=== PATIENT | male | born 1965 | race Caucasian/White ===

== ENCOUNTER 2022-06-30 12:50 | Outpatient (REF) | payer BC, SELFPAY ==
[2022-06-30 13:03] LABS: MANUAL DIFF FLAG NO
[2022-06-30 13:14] LABS: Basophils Absolute Auto 0.1 X10*3/uL (0.0-0.2); Basophils Percent Auto 0.9 % (0-2); Eosinophils Percent Auto 0.7 % (0-4); Hematocrit 43.5 % (42.0-52.0); Hemoglobin 15.4 g/dl (14.0-18.0); Imm Gran Abs Auto 0.02 X10*3/uL (0.00-0.03); Imm Gran Pct Auto 0.4 % (0.0-0.4); Lymphocytes Absolute Auto 1.8 X10*3/uL (1.2-4.9); Lymphocytes Percent Auto 32.5 % (20-40); Mean Corpuscular HGB Conc 35.4 g/dl (31.0-36.0); Mean Corpuscular Hemoglobin 32.8 pg (27.0-33.0); Mean Corpuscular Volume 92.8 fL (80.0-98.0); Mean Platelet Volume 8.9 fL (9.4-12.4); Monocytes Absolute Auto 0.7 X10*3/uL (0.1-1.2); Monocytes Percent Auto 12.5 % (2-11); Neutrophils Absolute Auto 2.9 x10*3/uL (2.0-8.3); Platelet Count 315 X10*3/uL (160-400); Red Blood Count 4.69 X10*6/uL (4.60-5.80); Red Cell Distribution Width 11.9 % (11.0-16.0); White Blood Count 5.5 X10*3/uL (4.8-10.8)
[2022-06-30 13:43] LABS: Alanine Aminotransferase 20 U/L (0-40); Anion Gap 17 (12-20); Aspartate Amino Transferase 20 U/L (5-37); Blood Urea Nitrogen 9 mg/dL (9-16); Carbon Dioxide 22 mmol/L (22-29); Chloride 104 mmol/L (96-108); Estimated Glomerular Filt Rate > 60; Potassium 4.1 mmol/L (3.3-5.1); Sodium 139 mmol/L (135-145)
[2022-06-30 14:06] LABS: Thyroid Stimulating Hormone 1.24 uIU/mL (0.32-4.0)
== END 2022-06-30 12:51 | disposition home or self-care (01) ==
LOC: HO.LAB 12:50
PROVIDERS: PCP Family Medicine; Visit Provider Family Medicine
DX: I10 Essential (primary) hypertension (principal); R00.0 Tachycardia, unspecified; K75.81 Nonalcoholic steatohepatitis (NASH)
CPT/HCPCS: 36415; 80051; 82565; 84443; 84450; 84460; 84520; 85025

== ENCOUNTER 2024-06-22 11:47 | Outpatient (AMB) | payer BC, SELFPAY ==
--- NOTE | 2024-06-22 11:51 | MHC.OFFVIS ---
Vital Signs 06/22/24 11:53 Height 5 ft 10 in Weight 177 lb 4.026 oz BMI 25.4 BP 142/88 H Blood Pressure Location Lt brachial Position Sitting Pulse 81 Intake Visit Reasons: Colonoscopy Screening Intake Note: Patient in office today for colonoscopy screening. CC: Patient reports hx of hemorrhoids for about 15 years. Denies Allergies No Known Allergies [No Known Allergies*] Allergy (Verified 06/22/24 11:55) HPI HPI Colonoscopy Screening: Details: 59-year-old male here for preprocedural meeting to discuss a screening colonoscopy. He is referred by Nakul Chávez MD. P.m. X Allergic rhinitis Acne Hemorrhoids GERD High cholesterol Depression * SURGICAL HISTORY Collarbone fx repair * ALLERGIES:NKDA * [employer] LABS: none since 2021 TODAY'S VISIT This is his first colonoscopy. He has a known hemorrhoid that comes out intermittently and some RB on the TT for 20 years. No upper GI problems. He is fairly naive to anesthesia and sedation. He denies any cardiac or respiratory problems. No ID problems. There is no known FHX of CRC or polyps. [facility] Surgical History (Reviewed 06/22/24 @ 11:59 by Alessandro Keenan [facility]) No pertinent past surgical history Social History Alcohol intake: former Patient Tobacco Use Status: Never used Tobacco Review of Systems Const Denies fatigue, Denies fever(s), Denies night sweats, Denies poor appetite and Denies weight loss Eyes Reports requires corrective lenses ENT Reports Normal hearing present, Denies dental pain, Denies dysphagia, Denies hearing loss, Denies mouth pain, Denies odynophagia, Denies throat swelling, Denies tongue swelling and Reports other (Dentition adequate) GI Details: Denies abdominal pain, Denies melena, Denies bloating, Denies hematochezia, Denies constipation, Denies GI cramping, Denies dysphagia, Denies excessive flatus, Denies early satiety, Denies heartburn, Denies diarrhea, Denies nausea, Denies odynophagia, Denies vomiting and Denies hematemesis Skin/Breast Denies pruritus, Denies lesions, Denies rash and Denies jaundice Neuro Reports Normal hearing present and Denies Abnormal speech present Endo Denies fatigue Aller/Immun Denies throat swelling and Denies tongue swelling Physical Exam Vital Signs: BMI result Body Mass Index 25.4 Const General: cooperative, no acute distress, well developed and well groomed Nutritional Appearance: well nourished, obese and overweight Orientation/consciousness: oriented to person, oriented to place and oriented to time Limitations: No language barrier, ambulation with cane, ambulation with walker and wheelchair HEENT Head: Yes normocephalic and Yes atraumatic Eyes General: appearance normal, both eyes and all related structures Pupils: Equal, round and reactive pupils present Neck Neck: Yes normal visual inspection and Yes no lymphadenopathy Thyroid: Thyroid normal Resp Effort & Inspection: normal respiratory effort and able to speak in complete sentences Auscultation: clear to auscultation bilaterally Cardio Rate: regular rate Rhythm: regular rhythm Heart sounds: Normal, physiologic split S2 sound present Peripheral pulses: radial pulses present and posterior tibial pulses present GI Inspection: No distended, No Abdominal panniculus present and Yes visible herniation (mild umbilical) Palpation (GI): Soft to palpation, nontender, no guarding, not rigid and No hepatosplenomegaly present Percussion: Yes normal to percussion Auscultation: normal bowel sounds Rectal Exam - Male: Yes deferred Skin General skin exam: no rashes or lesions noted, turgor normal, skin not dry, no jaundice, No spider nevi and no striae Rashes: no rashes Nails: normal Neuro General: oriented to person, oriented to place and oriented to time Cranial nerves: Yes Equal, round and reactive pupils present and Yes Normal hearing present Speech: No Abnormal speech present Extrem General: Yes normal to inspection, No clubbing, No cyanosis and No edema Psych Appearance: grossly normal and well kempt Mental Status: mental status grossly normal Speech and movement: Normal speech and movement present Affect: normal affect Attitude: cooperative Thought process: Normal thought process present and not confabulating Thought content: Normal thought content present Insight: Good insight present (Psych) Judgement: Good judgement present (Psych) Assessment & Plan Assessment & Plan (1) Pre-op examination: Code(s): Z01.818 - Encounter for other preprocedural examination Category: Medical Plan This is his first colonoscopy. He has a known hemorrhoid that comes out intermittently and some RB on the TT for 20 years. No upper GI problems. He is fairly naive to anesthesia and sedation. He denies any cardiac or respiratory problems. No ID problems. There is no known FHX of CRC or polyps. Orders: Orders Comprehensive Met. Panel Today Z01.818 - Encounter for other preprocedural examination Colonoscopy - GI Use Only Today Z01.818 - Encounter for other preprocedural examination Complete Blood Count Auto Diff Today Z01.818 - Encounter for other preprocedural examination Medications: New bisacodyl (Dulcolax (bisacodyl)) 10 mg (2 x 5 mg) PO BEDTIME 2 days 4 tabs 0RF polyethylene glycol 3350 (Miralax) 238 grams PO ONCE 1 day 238 grams 0RF colonoscopy prep Coding Level of Care Code New Pt Level 3 (47190) Diagnoses Pre-op examination Z01.818
[2024-06-22 11:53] VITALS: BP 142/88; PULSE 81; BMI 25.4
== END 2024-06-22 12:19 | disposition home or self-care (01) ==
LOC: HO.HGI 11:48
PROVIDERS: PCP Family Medicine; Visit Provider Nurse Practitioner
DX: Z01.818 Encounter for other preprocedural examination (principal); Z12.11 Encounter for screening for malignant neoplasm of colon
CPT/HCPCS: S0285

== ENCOUNTER → 2024-06-22 11:47 | Outpatient (BNVA) | payer BC, SELFPAY | PROVIDERS: PCP Family Medicine; Visit Provider Nurse Practitioner ==

== ENCOUNTER 2024-11-02 06:24 | Day surgery (SDC) | payer BC, SELFPAY ==
[2024-10-31 14:10] VITALS: BMI 25.4
--- NOTE | 2024-11-01 09:10 | P.CONAN_ITS ---
Documented by User: Harriet Victoria NP 11/01/24 09:10 HPI - Anesthesia Eval Consult details Narrative: 59yo M for Colonoscopy [facility] Active Problems Active Problems: All Active Problems Pre-op examination (Acute) Depression (Acute) GERD (gastroesophageal reflux disease) (Acute) High cholesterol (Acute) Hemorrhoids (Acute) Allergic rhinitis (Acute) Acne (Acute) Surgical History Surgical History No pertinent past surgical history Social History Social History Are you a primary ocular care technician to a significant other at home: No Do you presently have visiting nurse or other home services: No Alcohol intake: former Patient Tobacco Use Status: Never used Tobacco Use of substances other than those prescribed or required for medical reasons: Yes Have you been hit, kicked, punched, or otherwise hurt by someone within the past year? If so, by whom?: No Are you DNR?: No Advance Directives: No Advance Directives Information Provided: Yes Recently lost weight without trying: No Meds Allergies Allergy/AdvReac Type Severity Reaction Status Date / Time No Known Allergies Allergy Verified 06/22/24 11:55 [No Known Allergies*] Home Medications ?Medication ?Instructions ?Recorded ?Confirmed ?Last Taken ?Type bupropion HCl 150 mg tablet,12 hr 150 mg PO DAILY 06/22/24 Unknown History sustained-release Exam Height,Weight and Vital Signs: Height 5 ft 10 in Weight 80.286 kg Assessment and Plan Assessment Anesthesia Assessment: Chart Reviewed Documented by User: Chioma Ochoa MD 11/02/24 08:12 [facility] Family History Family history of problems with anesthesia: No Surgical History Surgical History No pertinent past surgical history History of Problems with Anesthesia: No Social History Social History (Reviewed 06/22/24 @ 11:59 by Alessandro Keenan [facility]) Are you a primary ocular care technician to a significant other at home: No Do you presently have visiting nurse or other home services: No Alcohol intake: former Patient Tobacco Use Status: Never used Tobacco Use of substances other than those prescribed or required for medical reasons: Yes Have you been hit, kicked, punched, or otherwise hurt by someone within the past year? If so, by whom?: No Are you DNR?: No Advance Directives: No Advance Directives Information Provided: Yes Recently lost weight without trying: No Meds Allergies Allergy/AdvReac Type Severity Reaction Status Date / Time No Known Allergies Allergy Verified 06/22/24 11:55 [No Known Allergies*] Home Medications ?Medication ?Instructions ?Recorded ?Confirmed ?Last Taken ?Type bupropion HCl 150 mg tablet,12 hr 150 mg PO DAILY 06/22/24 Unknown History sustained-release Exam Airway Mallampati Class: II (cracked lateral molar, not loose) TM Dist: >3cm Neck ROM: Full Heart: rrr Lungs: cta Assessment and Plan Assessment Anesthesia Assessment: Anesthesia Plan Discussed Final Anesthetic Review Family History of Problems with Anesthesia: No History of Problems with Anesthesia: No NPO: Yes ASA Class: II Final Preanesthetic Review: No Changes in Pt Med Stat, Meds/Allgs Chart Reviewed and Consent Obtained/Reviewed Patient Risk: Low Procedure Risk: Low Anesthetic Plan Anesthetic Plan: MAC: Disposition: Standard PACU
[2024-11-02 07:24] VITALS: BP 115/75; PULSE 81; RESP 16; TEMP 36.7; O2SAT 97
[2024-11-02] MEDS: Lactated Ringers 1,000 ML 100 ML IVCONT (07:38)
--- NOTE | 2024-11-02 08:28 | MHC.SHP ---
Pre-Procedural Eval Section A - 24 Hr Update-Section A only Date of Service: 11/02/24 Section B - Complete if H&P > 30 days Chief Complaint: Encounter for screening for malignant neoplasm of Relevant Family History (Specify if Yes): No Relevant Social History: None Present Medications: see Short Stay Collaborative assessment Medical History: Significant History (depression, gerd, acne) History of Previous Operations: No relevant previous surgery Allergies: Allergies Allergy/AdvReac Type Severity Reaction Status Date / Time No Known Allergies Allergy Verified 06/22/24 11:55 [No Known Allergies*] Review of Systems Sugical H&P ROS: Negative: Constitution, Cardiovascular, Respiratory, Neurological, Psychiatric, Hem-Onc, Allergic/Immunologic, Gastrointestinal, Genitourinary, Musculoskeletal, Integumentary, Endocrine and Eyes/Ears/Nose/Throat Exam Surgical H&P Exam: Normal: HEENT, Normal: Heart, Normal: Lungs, Normal: Extremities, Normal: Abdomen, Normal: Skin and Normal: Neurological Plan Diagnosis/Plan: Unchanged I have reviewed the history and physical and performed a pertinent physical examination on my patient. No changes have occurred unless specified. Time Spent With Patient Time: Total time managing care of this patient today ____ minutes.
--- NOTE | 2024-11-02 08:57 | P.OPN-COLO_ITS ---
Colonoscopy Operative Note Operative Note Date of Service: 11/02/24 Narrative: Operative Information Procedure Description: Colonoscopy Indication: screening Anesthesia: MAC COLONOSCOPY Instrument: Olympus variable stiffness pediatric scope 190L Colonoscopy Monitoring: Vital signs and clinical assessment, continuous EKG monitoring, Pulse oximetry, Carbon Dioxide monitoring and blood pressure monitoring were done throughout the procedure. Colon withdrawal time was 20 minutes. Procedure: The patient was placed in the left lateral decubitis position and pre-procedure medications were administered. After a digital rectal examination of the ano-rectum, the video colonoscope was inserted into the rectum and advanced through the colon to the cecum/TI. The colonoscope was slowly withdrawn in a retrograde panoramic fashion and the colon mucosa was carefully examined including a retroflexed view of the rectum. Findings and interventions are described below. Procedure Difficulty: easy Findings: Terminal Ileum-normal Cecum:normal Ascending Colon: 12-16 mm sessile polyp noted in proximal area, lifted wtih few ml of eleview and removed with cold snare with x 3 clips applied to close defect Transverse Colon -normal Descending Colon: 10-11 mm sessile polyp removed with cold snare Sigmoid Colon: normal Rectum: Retroflexion with large internal hemorrhoids seen, grade I Anorectum - normal Intervention: cold snare, eleview injection for EMR Colon preparation: [place] Bowel Preparation Scale Right colon; 2 Transverse colon: 2 Left colon; 2 (0 = Unprepared colon segment with mucosa not seen due to solid stool that cannot be cleared. 1 = Portion of mucosa of the colon segment seen, but other areas of the colon segment not well seen due to staining, residual stool and/or opaque liquid. 2 = Minor amount of residual staining, small fragments of stool and/or opaque liquid, but mucosa of colon segment seen well. 3 = Entire mucosa of colon segment seen well with no residual staining, small fragments of stool or opaque liquid) Impression and Post Procedure Diagnosis: colon polyps x 2 internal hemorrhoids Plan: High fiber diet leaflet Avoid straining at stool, epsom salts and sitz bath, anusol supps or cream Repeat Colonoscopy in 1 year due to large polyps or earlier if clinically indicated Above findings were reviewed with the patient and relevant handouts were provided if indicated.
[2024-11-02 09:07] VITALS: BP 129/75; PULSE 73; RESP 16; TEMP 36.3; O2SAT 98
[2024-11-02 09:21] VITALS: BP 130/72; PULSE 64; RESP 16; TEMP 36.8; O2SAT 99
== END 2024-11-02 10:13 | disposition home or self-care (01) ==
PROVIDERS: Visit Provider Internal Medicine Gastroenterology
PROC: 0DJD8ZZ Inspection of Lower Intestinal Tract, Via Natural or Artificial Opening Endoscopic (ICD-10-PCS; CPT 45378; principal; 2024-11-02 08:30)
DX: Z12.11 Encounter for screening for malignant neoplasm of colon (principal); D12.2 Benign neoplasm of ascending colon; D12.4 Benign neoplasm of descending colon; K64.0 First degree hemorrhoids; E78.00 Pure hypercholesterolemia, unspecified; K21.9 Gastro-esophageal reflux disease without esophagitis; F32.A Depression, unspecified
CPT/HCPCS: 45385; 45381; 88305; J2003; J2704

== ENCOUNTER → 2024-11-02 06:24 | Outpatient (BNV) | payer BC, SELFPAY | PROVIDERS: Visit Provider Internal Medicine Gastroenterology | DX: Z12.11 Encounter for screening for malignant neoplasm of colon (principal); D12.2 Benign neoplasm of ascending colon; D12.4 Benign neoplasm of descending colon; K64.0 First degree hemorrhoids | CPT/HCPCS: 45381; 45385 ==

== ENCOUNTER 2024-11-16 16:25 | Outpatient (AMB) | payer BC, SELFPAY ==
--- NOTE | 2024-11-16 16:28 | MHC.OFFVIS ---
Vital Signs 11/16/24 16:44 Height 5 ft 10 in Weight 167 lb 15.876 oz BMI 24.1 BP 147/87 H Blood Pressure Location Lt brachial Position Sitting Intake Visit Reasons: s/p colo Herrera Intake Note: Patient in office today in follow up s/p colonoscopy. CC: Denies having any GI symptoms or concerns. Combat Engineer Required: No Accompanied by: Self / Same As Patient Allergies No Known Allergies [No Known Allergies*] Allergy (Verified 11/16/24 16:50) HPI HPI s/p colo Herrera: Details: Assessment & Plan (1) Pre-op examination: Code(s): Z01.818 - Encounter for other preprocedural examination Category: Medical Plan This is his first colonoscopy. He has a known hemorrhoid that comes out intermittently and some RB on the TT for 20 years. No upper GI problems. He is fairly naive to anesthesia and sedation. He denies any cardiac or respiratory problems. No ID problems. There is no known FHX of CRC or polyps. Orders: Orders Comprehensive Met. Panel Today Z01.818 - Encounter for other preprocedural examination Colonoscopy - GI Use Only Today Z01.818 - Encounter for other preprocedural examination Complete Blood Count Auto Diff Today Z01.818 - Encounter for other preprocedural examination Medications: New bisacodyl (Dulcolax (bisacodyl)) 10 mg (2 x 5 mg) PO BEDTIME 2 days 4 tabs 0RF polyethylene glycol 3350 (Miralax) 238 grams PO ONCE 1 day 238 grams 0RF colonoscopy prep LABS: not obtained COLONOSCOPY 11/02/24 Findings: Terminal Ileum-normal Cecum:normal Ascending Colon: 12-16 mm sessile polyp noted in proximal area, lifted wtih few ml of eleview and removed with cold snare with x 3 clips applied to close defect Transverse Colon -normal Descending Colon: 10-11 mm sessile polyp removed with cold snare Sigmoid Colon: normal Rectum: Retroflexion with large internal hemorrhoids seen, grade I Anorectum - normal Intervention: cold snare, eleview injection for EMR Impression and Post Procedure Diagnosis: colon polyps x 2 internal hemorrhoids Plan: High fiber diet leaflet Avoid straining at stool, epsom salts and sitz bath, anusol supps or cream Repeat Colonoscopy in 1 year due to large polyps or earlier if clinically indicated BIOPSY Received: 11/02/24 Diagnosis A. Colon, ascending, polyp: Tubular adenoma; negative for high-grade dysplasia and carcinoma. B. Colon, descending, polyp: Tubular adenoma; negative for high-grade dysplasia and carcinoma TODAY'S VISIT THE PROCEDURE NEEDS TO BE REPEATED IN 1 YEAR TO THE LARGE size of the tubular adenomas. The procedure was well tolerated. The results were explained and the patient is agreeable to the follow-up interval as stated. The bowel pattern has returned to normal. Education was provided to tell any 1st degree relatives about their findings to be sure that they are screened by age 45. Educated that they will be put on a recall list when it is time for their repeat scope but should they move out of state or away from the hospital they will need to remember along with their primary to repeat the procedure in a timely fashion to avoid any adverse complications. [facility] Surgical History No pertinent past surgical history Social History Are you a primary critical care nurse practitioner to a significant other at home: No Do you presently have visiting nurse or other home services: No Alcohol intake: former Patient Tobacco Use Status: Never used Tobacco Review of Systems Const Denies fatigue, Denies fever(s), Denies night sweats, Denies poor appetite and Denies weight loss ENT Reports Normal hearing present, Denies dental pain, Denies dysphagia, Denies hearing loss, Denies mouth pain, Denies odynophagia, Denies throat swelling, Denies tongue swelling and Reports other (Dentition adequate) Card Reports no additional complaints Resp Reports no additional complaints GI Details: Denies abdominal pain, Denies melena, Denies bloating, Denies hematochezia, Denies constipation, Denies GI cramping, Denies dysphagia, Denies excessive flatus, Denies early satiety, Denies heartburn, Denies diarrhea, Denies nausea, Denies odynophagia, Denies vomiting and Denies hematemesis Skin/Breast Denies pruritus, Denies lesions, Denies rash and Denies jaundice Neuro Reports Normal hearing present and Denies Abnormal speech present Endo Denies fatigue Aller/Immun Denies throat swelling and Denies tongue swelling Physical Exam Const General: cooperative, no acute distress, well developed and well groomed Nutritional Appearance: average body habitus and well nourished Orientation/consciousness: oriented to person, oriented to place and oriented to time Limitations: No language barrier HEENT Head: Yes normocephalic and Yes atraumatic Eyes General: appearance normal, both eyes and all related structures Pupils: Equal, round and reactive pupils present Neck Neck: Yes normal visual inspection and Yes no lymphadenopathy Thyroid: Thyroid normal Resp Effort & Inspection: normal respiratory effort and able to speak in complete sentences Auscultation: clear to auscultation bilaterally Cardio Rate: regular rate Rhythm: regular rhythm Heart sounds: Normal, physiologic split S2 sound present Peripheral pulses: radial pulses present and posterior tibial pulses present GI Inspection: No distended and No Abdominal panniculus present Palpation (GI): Soft to palpation, nontender, no guarding, not rigid and No hepatosplenomegaly present Percussion: Yes normal to percussion Auscultation: normal bowel sounds Rectal Exam - Male: Yes deferred Skin General skin exam: no rashes or lesions noted, turgor normal, skin not dry, no jaundice, No spider nevi and no striae Rashes: no rashes Nails: normal Neuro General: oriented to person, oriented to place and oriented to time Cranial nerves: Yes Equal, round and reactive pupils present and Yes Normal hearing present Speech: No Abnormal speech present Extrem General: Yes normal to inspection, No clubbing, No cyanosis and No edema Psych Appearance: grossly normal and well kempt Mental Status: mental status grossly normal Speech and movement: Normal speech and movement present Affect: normal affect Attitude: cooperative Thought process: Normal thought process present and not confabulating Thought content: Normal thought content present Insight: Good insight present (Psych) Judgement: Good judgement present (Psych) Assessment & Plan Assessment & Plan (1) Tubular adenoma of colon: Comment: 10/2024= 2 LARGE TA IS REPEAT IN 1 YEAR Code(s): D12.6 - Benign neoplasm of colon, unspecified Category: Medical Plan THE PROCEDURE NEEDS TO BE REPEATED IN 1 YEAR TO THE LARGE size of the tubular adenomas. The procedure was well tolerated. The results were explained and the patient is agreeable to the follow-up interval as stated. The bowel pattern has returned to normal. Education was provided to tell any 1st degree relatives about their findings to be sure that they are screened by age 45. Educated that they will be put on a recall list when it is time for their repeat scope but should they move out of state or away from the hospital they will need to remember along with their primary to repeat the procedure in a timely fashion to avoid any adverse complications. Medications: Refilled polyethylene glycol 3350 (Miralax) THE DAY BEFORE your procedure mix entire bottle with 64 ounces of Gatorade- no red, blue or purple. AT 5PM Start drinking 1 cup every 15minutes until half is gone. Continue drinking plenty of clear liquids. AT 10PM Finish drinking remaining prep. 238 grams PO ONCE 1 day 238 grams 0RF bisacodyl (Dulcolax (bisacodyl)) the day before colonoscopy take 2 pills at 12pm and 2 pills at 5pm with plenty of water 20 mg (4 x 5 mg) PO ONCE 1 day 4 tabs 0RF Coding Level of Care Code Est Pt Level 3 (26489) Diagnoses Tubular adenoma of colon D12.6
[2024-11-16 16:44] VITALS: BP 147/87; BMI 24.1
== END 2024-11-16 17:06 | disposition home or self-care (01) ==
LOC: HO.HGI 16:25
PROVIDERS: PCP Family Medicine; Visit Provider Nurse Practitioner
DX: D12.6 Benign neoplasm of colon, unspecified (principal)
CPT/HCPCS: 99213

== ENCOUNTER 2025-02-27 11:26 | Outpatient (AMB) | payer BC, SELFPAY ==
--- NOTE | 2025-02-27 11:28 | MHC.PC.OV ---
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 Accompanied by: Other Relationship Allergies No Known Allergies (No Known Allergies*) Allergy (Verified 02/27/25 11:37) Medication List - Last Reconciled 02/27/25 by KAILYN Gong acetaminophen 650 mg PO Q4H bupropion HCl SR 150 mg PO DAILY docusate sodium 100 mg PO BID folic acid 1 mg PO DAILY gabapentin 600 mg PO TID ibuprofen 400 mg PO TID loratadine (Allergy Relief (loratadine)) 10 mg PO DAILY magnesium hydroxide (Milk of Magnesia) 10 mL PO DAILY pyridoxine (vitamin B6) 50 mg PO DAILY trazodone 100 mg PO BEDTIME HPI HPI Comments History of Present Illness Details 60-year-old male with history of insomnia and alcohol use disorder presents to the office today to establish care, for management of chronic conditions, and for hospital discharge follow-up. Hospitalized from 02/12-02/17 at [facility] due to a fall from a ladder with loss of consciousness. He reports that he was cleaning out his gutter while standing on a ladder when he accidentally fell. On arrival, GCS 15. Ethyl alcohol on arrival was 154. He sustained non displaced fx of R1-4 and R8-10 and displaced fx R5-7 as well as a displaced fx of anterior and medial acetabulum and base of superior pubic rami, 1 cc pneumothorax, and pulmonary contusion/trace effusion. He did undergo ribfixation/VATS without complication. R chest tube as placed and IS was monitored. Chest tube removed 02/16 without issue. He was recommended for PT at home. He was discharged home witih gabapentin, robaxin and oxycodone. He reports he is only using these at bedtime and otherwise reports pain is well managed. He was seen by PT through [facility] who did not feel further home visits were needed and he has been continuing recommended physical therapy exercises and has been taking small steps, but is otherwise using a wheelchair. He reports there is some pain when coughing or sneezing but reports this is rare. No dyspnea. Discharged with [address] He does report that he had been drinking 2 beers on a daily basis but has since discontinued any alcohol consumption. He was monitored for alcohol withdrawal on phenobarbital. Sodium was noted to be low at 129 on discharge. ribs sneeze and cough Insomnia-managed with bupropion Concerns: None except above Health maintenance: Last colonoscopy 10/2024 with multiple large polyps noted, 1 year follow-up advised. Dr. Sharon Lawson for screening PSA ROS: General: No fevers, malaise, unintentional weight loss HEENT: No blurred vision, diplopia. No sore throat, nasal congestion, rhinorrhea, sinus pain, ear pain Cardiovascular: No chest pain, palpitations, or leg edema Respiratory: No shortness of breath, wheezing, cough GI: No abdominal pain, nausea, vomiting, diarrhea, constipation, melena, hematochezia : No dysuria, hematuria, increased urinary frequency, decreased urinary output MSK: see hpi Neuro: No headaches, weakness, paresthesias Skin: No rashes or lesions EXAM: Constitutional - Awake and Alert, No apparent distress Eyes - PERRL Cardiovascular - S1S2, RRR, No edema Respiratory - Normal lung expansion, Normal respiratory effort, No respiratory distress, CTA bilaterally Extremities - no calf tenderness bilaterally, no swelling Skin - Warm/Dry . [address] in post op incision without any dehiscence, purulent drainage, or significant erythema. There was also [address] at site of chest tube Neurological - Alert & oriented x3 Psychological - Appropriate affect [facility] Medical History (Updated 02/27/25 @ 12:35 by KAILYN Gong) History of alcohol abuse Pelvis fracture Traumatic closed fracture of multiple ribs of left side with minimal displacement Surgical History (Updated 02/22/25 @ 16:28 by Angela Edwards) H/O colonoscopy (~11/02/24) Social History Are you a primary acute care nurse practitioner to a significant other at home: No Do you presently have visiting nurse or other home services: No Alcohol intake: former Patient Tobacco Use Status: Never used Tobacco Questionnaire PHQ-9 Over the last 2 weeks, how often have you been bothered by any of the following problems? 1. Little interest or pleasure in doing things: several days 2. Feeling down, depressed, or hopeless: not at all 3. Trouble falling or staying asleep, or sleeping too much: not at all 4. Feeling tired or having little energy: several days 5. Poor appetite or overeating: not at all 6. Feeling bad about yourself - or that you are a failure or have let yourself or your family down: not at all 7. Trouble concentrating on things, such as reading the newspaper or watching television: not at all 8. Moving or speaking so slowly that other people could have noticed. Or the opposite - being so fidgety or restless that you have been moving around a lot more than usual: not at all 9. Thoughts that you would be better off or of hurting yourself in some way: not at all Total score: 2 Source: Developed by Drs. Tylor Greenfield, Carolina Turner, Tucker Flores and colleagues, with an educational willian from [employer]. Thrive Questionnaire Date Thrive assessed: 02/27/25 I am a: Patient What is your living situation today?: I have a steady place to live Within the past 12 months, did the food you bought not last and you didn't have the money to get more?: Never true Within the past 12 months, did you worry whether your food would run out before you got money to buy more?: Never true Do you have trouble paying for medicines?: No Do you have trouble getting transportation to medical appointments?: No Do you have trouble paying your heating and electricity bill?: No Do you have trouble taking care of your child, family member or friend?: No Do you have trouble with day-to-day activities such as bathing, preparing meals, shopping, managing finances, etc.?: No Are you currently unemployed and looking for a job?: No Are you interested in more education?: No THRIVE Score: 0 Physical exam (Primary Care) Vital Signs: Last Vital Signs Temp 97.8 F 02/27/25 11:39 Pulse 81 02/27/25 11:39 Resp 16 02/27/25 11:39 BP 130/62 02/27/25 11:39 Pulse Ox 98 02/27/25 11:39 Oxygen Delivery Method Room Air 02/27/25 11:39 BMI result Body Mass Index 23.0 Tobacco/Smoking Status: Tobacco use Status Patient Tobacco Use Status Never used Tobacco 02/27/25 11:29 PHQ-9: PHQ-9 Score PHQ-9: Total score 2 02/27/25 11:53 Thrive Assessment: Date of Thrive Assessment Date Thrive assessed 02/27/25 02/27/25 11:45 Coding Level of Care Code New Pt Level 4 (90385) Complex EM visit Add On G2211 Diagnoses Hospital discharge follow-up Z09 History of alcohol abuse F10.11 Hyponatremia E87.1 High cholesterol E78.00 Traumatic closed fracture of multiple ribs of left side with minimal displacement S22.42XA Pelvis fracture S32.9XXA Assessment & Plan Assessment & Plan (1) Hospital discharge follow-up: Code(s): Z09 - Encounter for follow-up examination after completed treatment for conditions other than malignant neoplasm Category: Medical Plan: Discharge medications reconciled. Reviewed history and physical and discharge summary as well as CT scan head, neck, ribs, thoracic, lumbar spine and hip/pelvis. Labs also reviewed. Plan as below (2) History of alcohol abuse: Code(s): F10.11 - Alcohol abuse, in remission Category: Medical Plan: Continue with abstinence. No evidence of withdrawal during hospitalization, managed with phenobarbital (3) Hyponatremia: Code(s): E87.1 - Hypo-osmolality and hyponatremia Category: Medical Plan: Possibly beer potomania in setting of above. Recheck sodium levels (4) High cholesterol: Code(s): E78.00 - Pure hypercholesterolemia, unspecified Category: Medical Plan: Lipid panel ordered. ASCVD risk score to be calculated pending results of studies (5) Traumatic closed fracture of multiple ribs of left side with minimal displacement: Code(s): S22.42XA - Multiple fractures of ribs, left side, initial encounter for closed fracture Category: Medical Plan: S/p fixation. Follow-up with Orthopedic surgery tomorrow as scheduled pain management p.r.n. (6) Pelvis fracture: Code(s): S32.9XXA - Fracture of unspecified parts of lumbosacral spine and pelvis, initial encounter for closed fracture Category: Medical Plan: Continue with PT exercises. Pain management p.r.n. gradual increase in ambulation as tolerated Plan Follow-up in the office next month as scheduled. Labs to be completed as ordered Orders: Orders Complete Blood Count Auto Diff Today E78.00 - Pure hypercholesterolemia, unspecified, E87.1 - Hypo-osmolality and hyponatremia, F32.A - Depression, unspecified, S22.42XA - Multiple fractures of ribs, left side, initial encounter for closed fracture, S32.9XXA - Fracture of unspecified parts of lumbosacral spine and pelvis, initial encounter for closed fracture Lipid Panel Today E78.00 - Pure hypercholesterolemia, unspecified, E87.1 - Hypo-osmolality and hyponatremia, F32.A - Depression, unspecified, S22.42XA - Multiple fractures of ribs, left side, initial encounter for closed fracture, S32.9XXA - Fracture of unspecified parts of lumbosacral spine and pelvis, initial encounter for closed fracture Liver Panel Today E78.00 - Pure hypercholesterolemia, unspecified, E87.1 - Hypo-osmolality and hyponatremia, F32.A - Depression, unspecified, S22.42XA - Multiple fractures of ribs, left side, initial encounter for closed fracture, S32.9XXA - Fracture of unspecified parts of lumbosacral spine and pelvis, initial encounter for closed fracture Basic Metabolic Panel Today E78.00 - Pure hypercholesterolemia, unspecified, E87.1 - Hypo-osmolality and hyponatremia, F32.A - Depression, unspecified, S22.42XA - Multiple fractures of ribs, left side, initial encounter for closed fracture, S32.9XXA - Fracture of unspecified parts of lumbosacral spine and pelvis, initial encounter for closed fracture Prostate Specific Antigen Today E78.00 - Pure hypercholesterolemia, unspecified, E87.1 - Hypo-osmolality and hyponatremia, F32.A - Depression, unspecified, S22.42XA - Multiple fractures of ribs, left side, initial encounter for closed fracture, S32.9XXA - Fracture of unspecified parts of lumbosacral spine and pelvis, initial encounter for closed fracture Magnesium Today F10.11 - Alcohol abuse, in remission Patient Instructions: Check if PFML (paid family medical leave) paperwork has been filled out for leave. If not get paperwork from or print off from internet and bring them into the office for completion. Fill out the front pages and add name to the subsequent pages.
[2025-02-27 11:39] VITALS: BP 130/62; PULSE 81; RESP 16; TEMP 36.6; O2SAT 98; BMI 23.0
== END 2025-02-27 13:28 | disposition home or self-care (01) ==
LOC: HO.HMCHD 11:26
PROVIDERS: PCP Family Medicine; Visit Provider Physician Assistant
DX: Z09 Encounter for follow-up examination after completed treatment for conditions other than malignant neoplasm (principal); F10.11 Alcohol abuse, in remission; E87.1 Hypo-osmolality and hyponatremia; E78.00 Pure hypercholesterolemia, unspecified; S22.42XA Multiple fractures of ribs, left side, initial encounter for closed fracture; S32.9XXA Fracture of unspecified parts of lumbosacral spine and pelvis, initial encounter for closed fracture

== ENCOUNTER 2025-04-11 16:39 | Outpatient (AMB) | payer BC, SELFPAY ==
--- NOTE | 2025-04-11 17:06 | MHC.PC.OV ---
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 Accompanied by: Self / Same As Patient Allergies No Known Allergies (No Known Allergies*) Allergy (Verified 04/11/25 17:06) Medication List - Last Reconciled 04/11/25 by KAILYN Gong bupropion HCl SR 150 mg PO DAILY loratadine (Allergy Relief (loratadine)) 10 mg PO DAILY trazodone 100 mg PO BEDTIME Tobacco use date assessed: 04/11/25 Dental Screening Dental Screen Date: 04/11/25 Did you have a dental visit in the last 12 months?: No Did you have a dental problem in the last 6 months where you did not have access to dental care?: No Was dental information given to patient?: No HPI HPI Comments History of Present Illness Details 60-year-old male with history of insomnia and alcohol use disorder presents to the office today to establish care, for follow up Hospitalized from 02/12-02/17 at [facility] due to a fall from a ladder with loss of consciousness. He reports that he was cleaning out his gutter while standing on a ladder when he accidentally fell. On arrival, GCS 15. Ethyl alcohol on arrival was 154. He sustained non displaced fx of R1-4 and R8-10 and displaced fx R5-7 as well as a displaced fx of anterior and medial acetabulum and base of superior pubic rami, 1 cc pneumothorax, and pulmonary contusion/trace effusion. He did undergo ribfixation/VATS without complication. R chest tube as placed and IS was monitored. Chest tube removed 02/16 without issue. He was recommended for PT at home. He was discharged home witih gabapentin, robaxin and oxycodone. He reports he is only using these at bedtime and otherwise reports pain is well managed. He was seen by PT through [facility] who did not feel further home visits were needed and he has been continuing recommended physical therapy exercises and has been taking small steps, but is otherwise using a wheelchair. He reports there is some pain when coughing or sneezing but reports this is rare. No dyspnea. Discharged with [address] Feeling much better, has returned to work Insomnia-managed with bupropion for rumination. Trazodone every 2-3 days as needed Concerns: None except above Health maintenance: Last colonoscopy 10/2024 with multiple large polyps noted, 1 year follow-up advised. Dr. Sharon Lawson for screening PSA ROS: General: No fevers, malaise, unintentional weight loss HEENT: No blurred vision, diplopia. No sore throat, nasal congestion, rhinorrhea, sinus pain, ear pain Cardiovascular: No chest pain, palpitations, or leg edema Respiratory: No shortness of breath, wheezing, cough GI: No abdominal pain, nausea, vomiting, diarrhea, constipation, melena, hematochezia : No dysuria, hematuria, increased urinary frequency, decreased urinary output MSK: see hpi Neuro: No headaches, weakness, paresthesias Skin: No rashes or lesions EXAM: Constitutional - Awake and Alert, No apparent distress Eyes - PERRL Cardiovascular - S1S2, RRR, No edema Respiratory - Normal lung expansion, Normal respiratory effort, No respiratory distress, CTA bilaterally Extremities - no calf tenderness bilaterally, no swelling Skin - Warm/Dry Neurological - Alert & oriented x3 no concerns PFSH Medical History (Updated 02/27/25 @ 12:35 by KAILYN Gong) History of alcohol abuse Pelvis fracture Traumatic closed fracture of multiple ribs of left side with minimal displacement Surgical History (Updated 02/22/25 @ 16:28 by Angela Edwards) H/O colonoscopy (~11/02/24) Social History Housing: House Are you a primary animal care attendant to a significant other at home: No Do you presently have visiting nurse or other home services: No Alcohol intake: former Patient Tobacco Use Status: Never used Tobacco Current occupational status: employed Cognitive needs: No Hearing needs: No Vision needs: No Questionnaire Thrive Questionnaire Date Thrive assessed: 02/27/25 Physical exam (Primary Care) Tobacco/Smoking Status: Tobacco use Status Tobacco use date assessed 04/11/25 04/11/25 17:07 Patient Tobacco Use Status Never used Tobacco 04/11/25 17:07 Thrive Assessment: Date of Thrive Assessment Date Thrive assessed 02/27/25 04/11/25 17:07 Coding Level of Care Code Est Pt Level 4 (79640) Diagnoses History of alcohol abuse F10.11 High cholesterol E78.00 Traumatic closed fracture of multiple ribs of left side with minimal displacement S22.42XA Assessment & Plan Assessment & Plan (1) History of alcohol abuse: Code(s): F10.11 - Alcohol abuse, in remission Category: Medical Plan: Stable, appears controlled with consumption (2) High cholesterol: Code(s): E78.00 - Pure hypercholesterolemia, unspecified Category: Medical Plan: Lipid panel ordered. ASCVD risk score to be calculated pending results of studies (3) Traumatic closed fracture of multiple ribs of left side with minimal displacement: Code(s): S22.42XA - Multiple fractures of ribs, left side, initial encounter for closed fracture Category: Medical Plan: S/p fixation. Continue following with Orthopedic surgery. Can return to work Plan Follow-up in 6 months for physical
== END 2025-04-11 17:23 | disposition home or self-care (01) ==
LOC: HO.HMCHD 16:40
PROVIDERS: PCP Family Medicine; Visit Provider Physician Assistant
DX: F10.11 Alcohol abuse, in remission (principal); E78.00 Pure hypercholesterolemia, unspecified; S22.42XA Multiple fractures of ribs, left side, initial encounter for closed fracture